=== PATIENT | male | born 1990 | race Caucasian/White ===

== ENCOUNTER 2016-09-10 15:37 | Emergency (ER) | payer OTHER ==
[2016-09-10 15:49] VITALS: BP 122/84
[2016-09-10 16:37] LABS: BUN/Creatinine Ratio 12.22; Blood Urea Nitrogen 11 mg/dL (9-20); Carbon Dioxide 30 mmol/L (22-30); Chloride 97.5 mmol/L (98-107); Glucose 85 mg/dL (75-100); Sodium 141 mmol/L (137-145)
[2016-09-10 16:38] LABS: Anion Gap 18 mmol/L
[2016-09-10 17:12] LABS: Basophils % (Auto) 0.3 % (0.0-1.8); Hematocrit 45.5 % (35.5-45.6); Hemoglobin 15.6 gm/dl (11.8-15.2); Mean Corpuscular HGB Conc 34 % (32-34); Mean Corpuscular Hemoglobin 30 pg (28-32); Mean Corpuscular Volume 89 fl (84-94); Platelet Count 206 K/mm3 (140-440); Red Blood Count 5.13 M/mm3 (3.65-5.03); Red Cell Distribution Width 12.3 % (13.2-15.2); White Blood Count 7.3 K/mm3 (4.5-11.0)
[2016-09-10] MEDS ORDERED: ULTRAM PO ONE (18:07)
[2016-09-10 18:57] LABS: Bilirubin,Urine Negative (Negative); Blood,Urine Large (Negative); Ketones,Urine Negative (Negative)
[2016-09-10 18:58] LABS: Leukocyte Esterase,Urine Moderate (Negative); Nitrite,Urine Negative (Negative); Urobilinogen,Urine < 2.0 mg/dL (<2.0)
--- NOTE | 2016-09-10 20:03 | Emergency Department Report ---
Entered by OMAR HAGER, acting as scribe for GOLDEN BARR NP. ED Male HPI - General Chief complaint: Urogenital-Male Stated complaint: BLOOD IN URINE Time Seen by Provider: 09/10/16 17:16 Source: patient Mode of arrival: Ambulatory Limitations: No Limitations - History of Present Illness Initial comments: 25 y/o male presents to the ED c/o hematuria x 1 day. Associated symptoms include abdominal pain, constipation and dysuria but he denies fever, chills, nausea, vomiting, back pain and hematochezia. Pain is described as 6/10 on a severity scale. No alleviating factors but worse with urination. NKDA. MENDOZA Complaint: other (hematuria) Onset/Timin -: days(s) Radiation: none Severity: moderate Severity scale (0 -10): 6 Consistency: constant Improves with: none Worsens with: urination blood in urine, dysuria, other (abdominal pain, constipation, dysuria, denies: back pain, hematochezia). denies: discharge, swelling, mass, rash, urinary retention, fever (chills), nausea/vomiting - Related Data Sexually active: Yes Allergies Allergy/AdvReac Type Severity Reaction Status Date / Time No Known Allergies Allergy Verified 09/10/16 15:45 ED Review of Systems Comment: All other systems reviewed and negative Constitutional: denies: chills, fever Eyes: denies: eye pain, eye discharge, vision change ENT: denies: ear pain, throat pain Respiratory: denies: cough, shortness of breath, wheezing Cardiovascular: denies: chest pain, palpitations Endocrine: no symptoms reported Gastrointestinal: abdominal pain, constipation (last bm today hard firm pellets ), other (constipation). denies: nausea, vomiting, hematochezia Genitourinary: dysuria, hematuria Musculoskeletal: denies: back pain Skin: denies: rash, lesions Neurological: denies: headache, weakness, paresthesias Psychiatric: denies: anxiety, depression Hematological/Lymphatic: denies: easy bleeding, easy bruising ED Past Medical Hx - Past Medical History Previous Medical History?: No - Surgical History Past Surgical History?: No - Social History Smoking Status: Current Every Day Smoker ED Physical Exam - General Limitations: No Limitations General appearance: alert, in no apparent distress - Head Head exam: Present: atraumatic, normocephalic, normal inspection - Eye Eye exam: Present: normal appearance, PERRL, EOMI Pupils: Present: normal accommodation - ENT ENT exam: Present: normal exam, normal orophraynx, mucous membranes moist, TM's normal bilaterally, normal external ear exam - Neck Neck exam: Present: normal inspection, full ROM. Absent: tenderness, meningismus, lymphadenopathy, thyromegaly - Respiratory Respiratory exam: Present: normal lung sounds bilaterally. Absent: respiratory distress, wheezes, rales, rhonchi, chest wall tenderness, accessory muscle use, decreased breath sounds - Cardiovascular Cardiovascular Exam: Present: regular rate, normal rhythm, normal heart sounds. Absent: bradycardia, tachycardia, irregular rhythm, systolic murmur, diastolic murmur, rubs, gallop - GI/Abdominal GI/Abdominal exam: Present: soft, tenderness (suprapubic tenderness ), normal bowel sounds, other. Absent: guarding, rebound, diminished bowel sounds, organomegaly, mass, bruit, pulsatile mass, hernia - Rectal Rectal exam: Present: deferred - Extremities Exam Extremities exam: Present: normal inspection, full ROM, normal capillary refill. Absent: tenderness, pedal edema, joint swelling, calf tenderness - Back Exam Back exam: Present: normal inspection, full ROM. Absent: tenderness, CVA tenderness (R), CVA tenderness (L), muscle spasm, paraspinal tenderness, vertebral tenderness, rash noted - Neurological Exam Neurological exam: Present: alert, oriented X3 - Psychiatric Psychiatric exam: Present: normal affect, normal mood - Skin Skin exam: Present: warm, dry, intact, normal color. Absent: rash ED Course Vital Signs 09/10/16 09/10/16 15:46 18:27 Temperature 98.8 F Pulse Rate 90 Respiratory 16 16 Rate Blood Pressure 122/84 O2 Sat by Pulse 100 Oximetry ED Medical Decision Making - Lab Data Result diagrams: 09/10/16 16:03 09/10/16 16:03 Laboratory Tests 09/10/16 09/10/16 09/10/16 15:29 16:03 16:03 WBC 7.3 RBC 5.13 H Hgb 15.6 H Hct 45.5 MCV 89 MCH 30 MCHC 34 RDW 12.3 L Plt Count 206 Lymph % (Auto) 23.7 [place] % (Auto) 9.6 H Eos % (Auto) 1.0 Baso % (Auto) 0.3 Lymph # 1.7 [place] # 0.7 Eos # 0.1 Baso # 0.0 Seg Neutrophils % 65.4 Seg Neutrophils # 4.8 Sodium 141 Potassium 4.0 Chloride 97.5 L Carbon Dioxide 30 Anion Gap 18 BUN 11 Creatinine 0.9 Estimated GFR > 60 BUN/Creatinine Ratio 12.22 Glucose 85 Calcium 9.0 Urine Color Yellow Urine Turbidity Hazy Urine pH 8.0 H Ur Specific [place] 1.005 Urine Protein 30 mg/dl Urine Glucose (UA) Negative Urine Ketones Negative Urine Blood Large A Urine Nitrite Negative Urine Bilirubin Negative Urine Urobilinogen < 2.0 Ur Leukocyte Esterase Moderate Urine WBC (Auto) 50.0 H Urine RBC (Auto) 60.0 U Epithel Cells (Auto) 2.0 - Medical Decision Making pt is a 25 y/o male who presents initally for hematuria x 1 episodes secondary complaint of constipation x 2 days last bm today "hard firm pellets" last hematuria this am, pt endorses dysuria urgency frequency , pt is denies penile discharge no rash no lesions no open sores, exam : ABD b/s x 4 qds , abd flat soft nontender no bruit no hernia mild superpubic pain to palpation no inguinal hernia no lymph no scrotal swelling no cva tenderness no fever no chills pt is passing urine , labs: noted for large blood protein, wbc , discussed same with patient , patient requesting ct scan to rule out kidneystone, this is a reasonable request. pt now refuses CT Abd pelvisl r/o renal stone will follow up with urology pt verbalized agreement and understanding of need to follow up with urology will treat with bactrim po, nsaids prn pain , pt is currently a/o x 3 abmulatory voiding without difficulty with nad . ED Disposition Clinical Impression: UTI (urinary tract infection) Qualifiers: Urinary tract infection type: acute cystitis Hematuria presence: without hematuria Qualified Code(s): N30.00 - Acute cystitis without hematuria Disposition: TO HOME OR SELFCARE Is pt being admited?: No Does the pt Need Aspirin: No Condition: Good Instructions: Urinary Tract Infection in Men (ED) Additional Instructions: follow up with urologist as directed Referrals: PRIMARY CARE, [Primary Care Provider] - 3-5 Days Forms: Work/School Release Form(ED) Time of Disposition: 20:03 This documentation as recorded by the ALLEY pryor ELIZABETH,accurately reflects the service I personally performed and the decisions made by me, GOLDEN BARR, MAURICIO.
== END 2016-09-10 20:10 | disposition home or self-care (01) ==
LOC: ED 15:37
DX: N30.00 Acute cystitis without hematuria (principal)
CPT/HCPCS: 36415; 80048; 81001; 85025; 99283